=== PATIENT | male | born 1990 | race Caucasian/White ===

== ENCOUNTER 2024-01-25 12:46 | Outpatient (CLI) | payer OTHER, SELFPAY ==
--- NOTE | 2024-01-25 13:00 | CRLHL7_ITS ---
For Patients: As a result of the Century Cures Act, medical imaging exams and procedure reports are released immediately into your electronic medical record. You may view this report before your referring provider. If you have questions, please contact your health care provider. INDICATION: Low back pain. COMPARISON: None. TECHNIQUE: Sagittal T1, T2, and STIR sequences. Axial T1 and T2 weighted sequences. FINDINGS: Trace degenerative anterolisthesis of L5 on S1 measures approximately 4 mm. Associated bilateral pars defects. Otherwise, normal alignment. No fractures. No vertebral body loss of height. No spondylolisthesis. No ligamentous injury. No suspicious osseous lesions. Number conus terminates at L1. T12-L1 L1-2: No spinal canal neural foraminal narrowing. L2-3: No spinal canal neural foraminal narrowing. L3-4: Mild annular bulge. No narrowing of the spinal canal. No neural foraminal narrowing. L4-5: Mild disc degeneration and posterior disc bulge. No narrowing of spinal canal. No neural foraminal narrowing. L5-S1: Grade 1 anterolisthesis. Disc degeneration loss disc height. No narrowing of spinal canal. No impingement of the traversing S1 nerve roots. No neural foraminal narrowing. Mild facet arthropathy. Normal visualized SI joints. Normal paraspinal soft tissues. IMPRESSION: 1. Trace degenerative anterolisthesis of L5 on S1. Associated bilateral pars defects. Otherwise normal alignment. No fractures 2. At L4-5, mild disc degeneration and posterior disc bulge. Otherwise, no spinal canal or neural foraminal narrowing. 3. At L5-S1, disc degeneration. No spinal canal or neural foraminal narrowing. Dictated by Balaji Brown MD @ 01/26/2024 2:51:49 PM (Electronically Signed)
== END 2024-01-25 12:47 | disposition home or self-care (01) ==
LOC: MRI 12:49
PROVIDERS: Visit Provider Family Medicine
DX: M54.50 Low back pain, unspecified (principal); M51.86 Other intervertebral disc disorders, lumbar region; M51.37 Other intervertebral disc degeneration, lumbosacral region; G89.29 Other chronic pain
CPT/HCPCS: 72148

== ENCOUNTER 2024-03-20 07:30 | Outpatient (RCR) | payer OTHER, SELFPAY | END 2024-07-18 23:59 | disposition home or self-care (01) | PROVIDERS: Visit Provider Family Medicine | DX: G89.29 Other chronic pain (principal); M54.50 Low back pain, unspecified; M43.10 Spondylolisthesis, site unspecified; Z51.89 Encounter for other specified aftercare | CPT/HCPCS: 97110; 97162 ==

== ENCOUNTER 2024-05-02 12:56 | Outpatient (CLI) | payer OTHER, SELFPAY ==
--- NOTE | 2024-05-02 13:00 | MR_ITS ---
[facility] [address] [facility] [address] Phone:?[phone] Fax:?[phone] Referring Physician Information: KEON Wiley [address] [facility] [address] Phone:?[phone] Fax:?[phone] Patient:Phi Galvin D.O.B:?1990 Sex:?Male Phone:?[phone] [facility] MRN:?[id number] Exam Date:?05/02/2024 EXAM: MRI of the RIGHT KNEE, without contrast CLINICAL INFORMATION: Male, 33 years old, with right knee pain and stiffness. INDICATION: Evaluate for lateral meniscal tear. PRIOR SURGERY: None reported. PLAIN FILMS: None available. COMPARISONS: No prior MRIs available. TECHNICAL INFORMATION: Using a 1.5T MR scanner and a localizing surface coil: sagittals: PD, PDFS coronals: PD, T2FS axials: PD, PDFS SEDATION: None CONTRAST: None FINDINGS: Knee joint: Effusion: Small right knee effusion. Popliteal cyst: Tiny, unruptured Medrano's cyst. Loose bodies: None. Subcutaneous and extra-articular soft tissues: Unremarkable. Ligaments: ACL: Intact ACL anteromedial and posterolateral bundles, without sprain or tear. PCL: Intact PCL, without acute or chronic injury. MCL: Intact MCL superficial and deep layers, without injury. LCL: Intact LCL, without injury. Posterolateral corner: No posterolateral corner soft tissue injury. Popliteus, biceps femoris, iliotibial band, popliteofibular ligament and lateral gastrocnemius are intact. Posteromedial corner: No posteromedial corner soft tissue injury. Semimembranosus, pes anserine tendons and posterior oblique ligament are without injury, tendinopathy or bursitis. Extensor mechanism: Patellar tendon: Intact, without tendinopathy. Quadriceps tendon: Mild quadriceps tendinopathy, without tear. Retinacula: Medial and lateral retinacula are intact. Fat pads: Unremarkable infrapatellar Hoffa's, quadriceps and prefemoral fat pads. Medial compartment: Medial meniscus: No articular surface, meniscosynovial junction or root tear. No displacement, extrusion or parameniscal cyst. Medial femoral condyle: No chondromalacia or osteochondral abnormality. Medial tibial plateau: No chondromalacia or osteochondral abnormality. Lateral compartment: Lateral meniscus: No articular surface, meniscosynovial junction or root tear. No displacement, extrusion or parameniscal cyst. 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 Lateral tibial plateau: No chondromalacia or osteochondral abnormality. Patellofemoral joint: Patella: No chondromalacia or osteochondral abnormality. Trochlea: No chondromalacia or osteochondral abnormality. Proximal tibiofibular joint: Unremarkable, without evidence of ligament sprain injury, joint effusion or adjacent marrow edema. Bones: No stress/occult fractures or other marrow edema/pathology. IMPRESSION: 1. 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 2. Small knee joint effusion with a tiny, unruptured popliteal (Medrano's) cyst. 3. Mild quadriceps tendinopathy, without tear. 4. No cruciate or collateral ligament sprain/tear. 5. No medial or lateral meniscal tear. 6. No osteochondral abnormality of the medial or patellofemoral compartment. BC Electronically signed on 05/07/2024 5:05:00 PM by Clive Pbalo M.D.
== END 2024-05-02 12:57 | disposition home or self-care (01) ==
LOC: MRI 12:57
PROVIDERS: Visit Provider Physician Assistant Surgical
DX: M25.661 Stiffness of right knee, not elsewhere classified (principal); M94.261 Chondromalacia, right knee; M25.461 Effusion, right knee
CPT/HCPCS: 73721

== ENCOUNTER 2024-07-21 16:03 | Outpatient (CLI) | payer BC, SELFPAY | END 2024-07-21 16:04 | disposition home or self-care (01) | LOC: NFLDREF 07-23 02:02 | PROVIDERS: Visit Provider Podiatrist | DX: B35.1 Tinea unguium (principal); B35.3 Tinea pedis | CPT/HCPCS: 80076 ==

== ENCOUNTER 2024-09-08 16:35 | Outpatient (CLI) | payer BC, SELFPAY | END 2024-09-08 16:36 | disposition home or self-care (01) | LOC: NFLDREF 09-10 07:58 | PROVIDERS: Visit Provider Podiatrist | DX: B35.1 Tinea unguium (principal) | CPT/HCPCS: 80076 ==